=== PATIENT | male | born 1995 | race Caucasian/White ===

== ENCOUNTER 2018-06-16 01:53 | Outpatient (CLI) | payer BC, SELFPAY ==
--- NOTE | 2018-06-16 08:30 | DI.RAD_ITS ---
SYMPTOM/DIAGNOSIS: CHRONIC LT HIP PAIN, M25.552 LEFT HIP AND PELVIS: Three views were obtained. There is a question of slight deformity of the femoral head on the left, presumably chronic. No evidence of degenerative arthritis. No other bony abnormality is seen involving the hip or pelvis.
== END 2018-06-16 02:13 ==
PROVIDERS: PCP Emergency Medicine; Visit Provider Emergency Medicine
DX: M25.552 Pain in left hip (principal); G89.29 Other chronic pain
CPT/HCPCS: 73502

== ENCOUNTER 2020-06-03 11:09 | Outpatient (CLI) | payer MEDICAID, SELFPAY ==
[2020-06-05 11:15] LABS: COVID-19 RT-PCR UVMMC Result Negative (Negative)
== END 2020-06-03 11:29 ==
PROVIDERS: PCP Emergency Medicine; Visit Provider Emergency Medicine
DX: Z20.822 Contact with and (suspected) exposure to COVID-19 (principal)
CPT/HCPCS: U0003

== ENCOUNTER 2020-07-26 10:32 | Outpatient (CLI) | payer MEDICAID, SELFPAY ==
[2020-07-27 14:19] LABS: COVID-19 RT-PCR UVMMC Result Negative (Negative)
== END 2020-07-26 10:33 | disposition home or self-care (01) ==
PROVIDERS: PCP Emergency Medicine; Visit Provider Emergency Medicine
DX: Z20.822 Contact with and (suspected) exposure to COVID-19 (principal)
CPT/HCPCS: U0003

== ENCOUNTER 2020-08-13 02:57 | Outpatient (CLI) | payer MEDICAID, SELFPAY ==
[2020-08-14 18:40] LABS: COVID-19 RT-PCR UVMMC Result Negative (Negative)
== END 2020-08-13 02:58 | disposition home or self-care (01) ==
LOC: LBO 02:57
PROVIDERS: PCP Emergency Medicine; Visit Provider Emergency Medicine
DX: Z20.822 Contact with and (suspected) exposure to COVID-19 (principal)
CPT/HCPCS: U0003